=== PATIENT | female | born 1990 | race Caucasian/White ===

== ENCOUNTER 2019-01-18 21:28 | Inpatient (IN) ==
[2019-01-18] MEDS ORDERED: LACTATED RINGERS 500 ML IV PRN (22:39)
[2019-01-18 23:24] LABS: Basophils % 0.2 % (0.0-0.8); Eosinophils # 0.1 10*3/uL (0.0-0.87); Eosinophils % 0.7 % (0.00-10.9); Hematocrit 35.5 VOL% (35.7-47.0); Hemoglobin 11.8 GM/DL (12.0-16.0); Immature Granulocytes % 0.4 %; Immature Granulocytes Absolute 0.05 #; Lymphocytes # 2.6 10*3/uL (1.4-4.0); Lymphocytes % 22.5 % (21.3-54.2); Mean Corpuscular HGB Conc 33.2 GM/DL (32-36); Mean Corpuscular Volume 92.9 FL (87-102); Mean Platelet Volume 11.5 FL (9.6-12.0); Monocytes % 4.7 % (1.7-12.7); Neutrophils % 71.5 % (38.7-73.9); Platelet Count 185 T/CUMM (130-400); Red Blood Count 3.82 MC/CUMM (3.8-5.5); Red Cell Distribution Width 13.7 % (9.3-17.3); White Blood Count 11.6 T/CUMM (4-12)
[2019-01-18 23:43] LABS: Alanine Aminotransferase 34 U/L (13-56); Albumin 2.7 G/DL (3.4-5.0); Alkaline Phosphatase 145 U/L (45-117); Aspartate Amino Transferase 23 U/L (0-37); Bilirubin,Total < 0.39 MG/DL (0.2-1.0); Blood Urea Nitrogen 11 MG/DL (7-18); Calcium 9.7 MG/DL (8.5-10.1); Glucose 77 MG/DL (74-106); Osmolality,Calculated 270.8 MOS/KG (273-304); Uric Acid 4.6 MG/DL (2.6-6.0)
[2019-01-19] MEDS: LACTATED RINGERS 1,000 ML IV SCH ×2 (07:35→17:40)
[2019-01-19] MEDS ORDERED: ACETAMINOPHEN 325 MG TABLET PO PRN (10:28)
[2019-01-19] MEDS: BUTORPHANOL 2 MG/ML VIAL IV PRN (19:11)
[2019-01-19] MEDS: ONDANSETRON 4 MG/2 ML VIAL IV PRN (19:11)
[2019-01-20] MEDS ORDERED: OXYTOCIN/LR 20 UNIT/1,000 ML BAG IV SCH
[2019-01-20] MEDS: ONDANSETRON 4 MG/2 ML VIAL IV PRN (00:28)
[2019-01-20] MEDS: BUTORPHANOL 2 MG/ML VIAL IV PRN ×2 (00:30→03:55)
[2019-01-20] MEDS: LACTATED RINGERS 1,000 ML IV SCH ×2 (03:15→21:22)
[2019-01-20] MEDS ORDERED: ePHEDrine 50 MG/ML AMP IV PRN (07:00)
[2019-01-20] MEDS ORDERED: NALOXONE 0.4 MG/ML VIAL IV PRN (07:00)
[2019-01-20] MEDS ORDERED: LACTATED RINGERS 1,000 ML IV SCH (07:00)
[2019-01-20] MEDS ORDERED: PROMETHAZINE 25 MG/1 ML VIAL IM ONE (07:00)
[2019-01-20] MEDS ORDERED: hydrOXYzine HCL 25 MG/1 ML VIAL IM PRN (07:00)
[2019-01-20] MEDS ORDERED: fentaNYL 2 MCG/ROPIV 0.2% EPID 100 ML EPIDURAL SCH (07:00)
[2019-01-20] MEDS ORDERED: diphenhydrAMINE 50 MG/1 ML VIAL IV PRN ×2 (07:00)
[2019-01-20] MEDS ORDERED: CITRIC ACID/SODIUM CITRATE 30 ML UDCUP PO ONE (07:01)
[2019-01-20] MEDS ORDERED: FAMOTIDINE 20 MG/2 ML VIAL IV ONE (07:01)
[2019-01-20 09:27] LABS: Apearance,Urine CLEAR (Clear); Bacteria,Urine Occasional /HPF (Few); Bilirubin,Urine Negative (Negative); Blood, Urine Small mg/dL (Negative); Glucose,Urine (UA) Negative (Negative); Ketones,Urine 80 mg/dL (Negative); Mucus,Urine Few /LPF (Occasional); Nitrite,Urine Negative (Negative); Protein,Urine Negative; RBC,Urine 9 /HPF (0-4); Squamous Epithelial Cell,Urine Occasional /HPF (0-10); Urine Color Yellow (Yellow); Urine Specific Gravity 1.015 (1.001-1.035); Urine Urobilinogen < 2.0 EU/DL (0.2-1.0); WBC,Urine 3 /HPF (0-6)
[2019-01-20] MEDS ORDERED: ceFAZolin 3,000 MG in SYRINGE 1 EACH IV ONE (11:37)
[2019-01-20] MEDS ORDERED: OXYTOCIN/LR 20 UNIT/1,000 ML BAG IV ONE ×2 (11:38→13:19)
[2019-01-20] MEDS ORDERED: BUPIVACAINE MPF 0.25% /EPI 30 ML VIAL ONE ×2 (11:57→11:58)
[2019-01-20] MEDS ORDERED: miSOPROStol 200 MCG TABLET ONE ×2 (12:35→12:37)
[2019-01-20] MEDS ORDERED: OXYTOCIN 10 UNIT/ML VIAL ONE (12:37)
[2019-01-20] MEDS ORDERED: miSOPROStol 200 MCG TABLET VAG ONE (12:40)
[2019-01-20] MEDS ORDERED: ACETAMINOPHEN 1,000 MG/100 ML VIAL IV ONE (12:48)
[2019-01-20] MEDS ORDERED: oxyCODONE/ACETAMINOPHEN 5-325 MG TABLET PO PRN (13:19)
[2019-01-20] MEDS ORDERED: BISACODYL 10 MG SUPP RECTAL PRN (13:19)
[2019-01-20] MEDS ORDERED: ACETAMINOPHEN 325 MG TABLET PO PRN (13:19)
[2019-01-20] MEDS ORDERED: HYDROCORTISONE 2.5% RECTAL CREAM 30 GM TUBE TOP PRN (13:19)
[2019-01-20] MEDS ORDERED: ONDANSETRON 4 MG/2 ML VIAL IV PRN (13:19)
[2019-01-20] MEDS ORDERED: BENZOCAINE 20%/MENTHOL 0.5% SPRAY 56 GM CAN TOP PRN (13:19)
[2019-01-20] MEDS ORDERED: WITCH HAZEL PADS 100/JAR TOP PRN (13:19)
[2019-01-20] MEDS ORDERED: LANOLIN 50% CREAM 0.3 OZ TUBE TOP PRN (13:19)
[2019-01-20] MEDS ORDERED: DIPH/TET/ACEL PERT BOOSTER VACCINE 0.5 ML VIAL IM ONE (13:30)
[2019-01-20] MEDS ORDERED: MEASLES/MUMPS/RUBELLA VACCINE 0.5 ML VIAL SUBCUT ONE (13:30)
[2019-01-20] MEDS ORDERED: RHO(D) IMMUNE GLOBULIN 300 MCG SYRINGE IM ONE (13:30)
[2019-01-20] MEDS ORDERED: MORPHINE 10 MG/10 ML VIAL ONE (14:06)
[2019-01-20] MEDS ORDERED: DEXAMETHASONE 4 MG/1 ML VIAL ONE (14:06)
[2019-01-20] MEDS ORDERED: ONDANSETRON 4 MG/2 ML VIAL ONE (14:06)
[2019-01-20] MEDS ORDERED: LACTATED RINGERS 1,000 ML IV ONE (14:06)
[2019-01-20] MEDS: ceFAZolin 1,000 MG in SYRINGE 1 EACH IV SCH (19:38)
[2019-01-20] MEDS: DOCUSATE SODIUM 100 MG CAPSULE PO SCH (21:22)
[2019-01-21] MEDS: ceFAZolin 1,000 MG in SYRINGE 1 EACH IV SCH (03:40)
[2019-01-21 05:09] LABS: Basophils % 0.2 % (0.0-0.8); Eosinophils % 0.1 % (0.00-10.9); Hemoglobin 8.7 GM/DL (12.0-16.0); Immature Granulocytes % 0.9 %; Immature Granulocytes Absolute 0.13 #; Lymphocytes # 2.5 10*3/uL (1.4-4.0); Lymphocytes % 17.4 % (21.3-54.2); Mean Corpuscular HGB Conc 32.2 GM/DL (32-36); Mean Corpuscular Volume 95.4 FL (87-102); Mean Platelet Volume 11.1 FL (9.6-12.0); Monocytes % 5.7 % (1.7-12.7); Neutrophils % 75.7 % (38.7-73.9); Platelet Count 162 T/CUMM (130-400); Red Blood Count 2.83 MC/CUMM (3.8-5.5); White Blood Count 14.1 T/CUMM (4-12)
[2019-01-21] MEDS ORDERED: SIMETHICONE CHEW 80 MG TABLET PO PRN (08:43)
[2019-01-21] MEDS ORDERED: MAGNESIUM HYDROXIDE SUSP 30 ML UDCUP PO PRN (08:43)
[2019-01-21] MEDS: oxyCODONE/ACETAMINOPHEN 5-325 MG TABLET PO PRN ×2 (09:54→13:31)
[2019-01-21] MEDS: MULTIVITAMIN (PRENATAL) TABLET PO SCH (09:54)
[2019-01-21] MEDS: DOCUSATE SODIUM 100 MG CAPSULE PO SCH ×2 (09:54→20:00)
[2019-01-21] MEDS: IBUPROFEN 800 MG TABLET PO PRN ×2 (13:31→20:00)
[2019-01-22] MEDS: IBUPROFEN 800 MG TABLET PO PRN ×3 (01:12→17:44)
[2019-01-22] MEDS: oxyCODONE/ACETAMINOPHEN 5-325 MG TABLET PO PRN ×3 (01:13→19:38)
[2019-01-22 07:23] VITALS: BP 122/85
[2019-01-22] MEDS: DOCUSATE SODIUM 100 MG CAPSULE PO SCH ×2 (08:50→19:38)
[2019-01-22] MEDS: MULTIVITAMIN (PRENATAL) TABLET PO SCH (08:50)
== END 2019-01-22 22:00 | disposition home or self-care (01) | DRG 788 ==
LOC: N.LDOUT 21:28 → N.LD 21:48 → N.OB 01-20 17:07
PROVIDERS: ADMIT Specialist; ATTEND Specialist
PROC: LDCSECT (ICD-10-PCS; 2019-01-20 12:04)